=== PATIENT | female | born 1985 | race Caucasian/White ===

== ENCOUNTER 2018-03-09 20:50 | Inpatient (IN) | payer OTHER ==
[~2018-03-09] VITALS: Ht 160 cm; Wt 85.6 kg
[2018-03-09 21:39] LABS: BASOPHILS % (AUTO) 0.2 % (0-1); EOSINOPHILS % (AUTO) 0 % (0-6); HEMATOCRIT 48.2 % (35.0-45.0); HEMOGLOBIN 16.5 g/dl (12.0-16.0); LYMPHOCYTES # (AUTO) 0.7 X10'3 (1.1-4.8); MEAN CORPUSCULAR HGB CONC 34.3 % (33.0-36.5); MEAN CORPUSCULAR VOLUME 90.3 FL (78-98); MEAN PLATELET VOLUME 8.8 FL (7.4-10.4); MONOCYTES # (AUTO) 0.7 X10'3 (0-0.9); MONOCYTES % (AUTO) 4.1 % (2-12); NEUTROPHILS % (AUTO) 91.7 % (42-75); PLATELET COUNT 251 X10'3 (140-440); RED BLOOD COUNT 5.34 X10'6 (4.20-5.60); RED CELL DISTRIBUTION WIDTH 13.8 % (11.5-14.5); WHITE BLOOD COUNT 17.5 X10'3 (4.5-11.0)
[2018-03-09 21:52] LABS: URINE HCG NEGATIVE (NEG)
[2018-03-09 21:53] LABS: ALANINE AMINOTRANSFERASE 508 U/L (12-78); ALKALINE PHOSPHATASE 165 IU/L (46-116); ANION GAP 16 (8-16); ASPARTATE AMINO TRANSFERASE 201 U/L (10-37); BILIRUBIN,TOTAL 4.3 MG/DL (0.1-1.0); BLOOD UREA NITROGEN 7 MG/DL (7-18); BUN/CREATININE RATIO 6.9 (6.6-38.0); CALCIUM 9.8 MG/DL (8.5-10.1); CHLORIDE 101 MMOL/L (99-107); CREATININE 1.01 MG/DL (0.40-0.90); GLUCOSE 122 MG/DL (70-104); POTASSIUM 3.7 MMOL/L (3.5-5.1); SODIUM 138 MMOL/L (135-145); TOTAL CARBON DIOXIDE 21.5 MMOL/L (24-32); eGFR 64 ML/MIN
[2018-03-09 22:02] LABS: CLARITY,URINE CLEAR (Clear); GLUCOSE, URINE NEGATIVE (Neg); KETONES,URINE >=80 mg/dl (Neg); LEUKOCYTE ESTERASE ,URINE NEGATIVE (Neg); NITRITES, URINE NEGATIVE (Neg); OCCULT BLOOD,URINE TRACE-INTACT (Neg); PROTEIN,URINE NEGATIVE (Neg)
[2018-03-09 22:04] LABS: COLOR,URINE AMBER (Yellow); UA COLLECTION TYPE CLN CATCH MIDSTREAM
[2018-03-09 22:07] LABS: BACTERIA,URINE 3+ /HPF (Neg); SQUAMOUS EPITHELIAL CELL,UR MODERATE /LPF (FEW)
[2018-03-09] MEDS ORDERED: sucralfate 1gm/10ml UD suspension PO SCH (22:10)
[2018-03-09] MEDS ORDERED: famotidine/PF 10 mg/ml inj IV ONE (22:10)
[2018-03-09] MEDS ORDERED: LIDOcaine Viscous 15ml cup MM PRN (22:10)
[2018-03-09] MEDS ORDERED: sucralfate 1gm/10ml UD suspension PO ONE (22:10)
[2018-03-09] MEDS ORDERED: pantoprazole 40 MG vial IV ONE (22:10)
[2018-03-09] MEDS ORDERED: mag hydrox/Alum hydrox/simeth 30ml oral suspension PO ONE (22:10)
[2018-03-09] MEDS ORDERED: LIDOcaine Viscous 15ml cup MM ONE (22:10)
[2018-03-09 22:29] LABS: LIPASE 3107 U/L (73-393)
[2018-03-10] VITALS (19 sets, daily range): BP systolic 106–133; BP diastolic 61–76
[2018-03-10] MEDS ORDERED: normal saline 1000ml 1,000 ML IV ONE (00:04)
[2018-03-10] MEDS ORDERED: normal saline 1000ML IV soln IVB ONE (00:05)
[2018-03-10] MEDS ORDERED: morphine 4 MG/ML inj SYRINge IV ONE ×2 (00:35→02:10)
[2018-03-10] MEDS ORDERED: ondansetron/PF 4mg/2ml inj IV ONE (00:35)
[2018-03-10] MEDS ORDERED: mag hydrox/Alum hydrox/simeth 30ml oral suspension PO PRN (01:05)
[2018-03-10] MEDS ORDERED: morphine 4 MG/ML inj SYRINge IV PRN ×2 (01:05)
[2018-03-10] MEDS ORDERED: acetaminophen 325mg tablet PO PRN ×2 (01:05)
[2018-03-10] MEDS ORDERED: magnesium hydroxide 30ml (MOM) UD suspension PO PRN (01:05)
[2018-03-10] MEDS: normal saline 1000ml 1,000 ML IV SCH ×3 (01:48→21:02)
[2018-03-10] MEDS: metroNIDAZOLE-Flagyl 500mg/NS 100 ML IV SCH ×3 (01:48→17:56)
[2018-03-10] MEDS ORDERED: MEDR150D9 IM (02:41)
[2018-03-10] MEDS: levoFLOXACIN-Levaquin 500mg/D5 100 ML IV SCH ×2 (03:25→21:00)
[2018-03-10] MEDS ORDERED: ketorolac tromethamine 15mg/ml inj. IV ONE (05:35)
[2018-03-10] MEDS: lactobacillus rhamnosus 10,000 MMU CELLS/CAPSULE PO SCH ×3 (08:00→22:09)
[2018-03-10] MEDS: enoxaparin 40mg/0.4ml syringe SQ SCH (08:00)
[2018-03-10] MEDS ORDERED: ketorolac trometh. 30mg/ml inj. IV PRN (13:00)
[2018-03-10] MEDS ORDERED: normal saline 1000ml 1,000 ML IV SCH ×2 (14:31→17:10)
[2018-03-10] MEDS ORDERED: fentaNYL/PF 50MCG/1 ML 2ML syringe IV PRN (14:35)
[2018-03-10] MEDS ORDERED: iohexol 300 MG/1 ML 50ml polymer IV ONE (14:35)
[2018-03-10] MEDS ORDERED: meperidine/PF 100mg/ml syringe IV PRN (14:35)
[2018-03-10] MEDS ORDERED: simethicone 40mg/0.6ml oral drops 30ml MC ONE (14:35)
[2018-03-10] MEDS ORDERED: glucagon, human recombinant 1mg kit IV PRN (14:35)
[2018-03-10] MEDS ORDERED: LIDOcaine Viscous 15ml cup PO ONE (14:35)
[2018-03-10] MEDS ORDERED: MIDAZolam 5mg/5ml vial IV PRN (14:35)
[2018-03-10 14:52] LABS: BASOPHILS % (AUTO) 0.2 % (0-1); EOSINOPHILS % (AUTO) 0 % (0-6); HEMATOCRIT 41.8 % (35.0-45.0); HEMOGLOBIN 14.9 g/dl (12.0-16.0); LYMPHOCYTES # (AUTO) 1.2 X10'3 (1.1-4.8); LYMPHOCYTES % (AUTO) 11.6 % (21-51); MEAN CORPUSCULAR HEMOGLOBIN 31.7 PG (27.0-31.0); MEAN CORPUSCULAR HGB CONC 35.6 % (33.0-36.5); MEAN CORPUSCULAR VOLUME 89.1 FL (78-98); MEAN PLATELET VOLUME 8.4 FL (7.4-10.4); MONOCYTES # (AUTO) 0.7 X10'3 (0-0.9); MONOCYTES % (AUTO) 6.6 % (2-12); NEUTROPHILS # (AUTO) 8.7 X10'3 (1.8-7.7); NEUTROPHILS % (AUTO) 81.6 % (42-75); PLATELET COUNT 202 X10'3 (140-440); RED BLOOD COUNT 4.69 X10'6 (4.20-5.60); WHITE BLOOD COUNT 10.6 X10'3 (4.5-11.0)
[2018-03-10 15:10] LABS: ALANINE AMINOTRANSFERASE 391 U/L (12-78); ALKALINE PHOSPHATASE 141 IU/L (46-116); ANION GAP 11 (8-16); ASPARTATE AMINO TRANSFERASE 129 U/L (10-37); BILIRUBIN,TOTAL 6.2 MG/DL (0.1-1.0); BLOOD UREA NITROGEN 6 MG/DL (7-18); BUN/CREATININE RATIO 7.2 (6.6-38.0); CALCIUM 8.9 MG/DL (8.5-10.1); CHLORIDE 107 MMOL/L (99-107); CREATININE 0.83 MG/DL (0.40-0.90); GLUCOSE 99 MG/DL (70-104); POTASSIUM 3.7 MMOL/L (3.5-5.1); SODIUM 142 MMOL/L (135-145); TOTAL CARBON DIOXIDE 24.1 MMOL/L (24-32); eGFR 80 ML/MIN
[2018-03-10 15:16] LABS: ALBUMIN/GLOBULIN RATIO 0.8 (1.1-1.5); TOTAL PROTEIN 6.8 G/DL (6.4-8.2)
[2018-03-10 15:19] LABS: LIPASE 8240 U/L (73-393)
[2018-03-10] MEDS ORDERED: meperidine/PF 100mg/ml syringe ONE (15:28)
[2018-03-10] MEDS ORDERED: fentaNYL/PF 50MCG/1 ML 2ML syringe ONE (15:29)
[2018-03-10] MEDS ORDERED: MIDAZolam 5mg/5ml vial ONE (15:29)
[2018-03-10] MEDS ORDERED: glucagon, human recombinant 1mg kit ONE (15:30)
[2018-03-10] MEDS ORDERED: LIDOcaine Viscous 15ml cup ONE (15:30)
[2018-03-10] MEDS ORDERED: diphenhydrAMINE 50 mg/ml inj ONE (15:30)
[2018-03-10] MEDS ORDERED: iohexol 300 MG/1 ML 50ml polymer ONE (15:31)
[2018-03-10] MEDS ORDERED: ondansetron/PF 4mg/2ml inj ONE (16:13)
[2018-03-10] MEDS ORDERED: diatr meglu/diatrizoate 30ml oral sol.-(3 dose) bottle PO SCH (21:00)
[2018-03-10] MEDS ORDERED: temazepam 15mg capsule PO PRN (21:00)
[2018-03-10] MEDS: ketorolac tromethamine 15mg/ml inj. IV PRN (21:50)
[2018-03-11] VITALS (23 sets, daily range): BP systolic 110–142; BP diastolic 65–90
[2018-03-11] MEDS: metroNIDAZOLE-Flagyl 500mg/NS 100 ML IV SCH ×4 (00:56→23:26)
[2018-03-11] MEDS: normal saline 1000ml 1,000 ML IV SCH ×3 (03:14→20:34)
[2018-03-11] MEDS: ketorolac tromethamine 15mg/ml inj. IV PRN ×2 (04:55→14:40)
[2018-03-11 05:40] LABS: BASOPHILS % (AUTO) 0.2 % (0-1); EOSINOPHILS % (AUTO) 0 % (0-6); HEMATOCRIT 38.6 % (35.0-45.0); HEMOGLOBIN 13.4 g/dl (12.0-16.0); LYMPHOCYTES # (AUTO) 1.6 X10'3 (1.1-4.8); LYMPHOCYTES % (AUTO) 19.3 % (21-51); MEAN CORPUSCULAR HEMOGLOBIN 31.5 PG (27.0-31.0); MEAN CORPUSCULAR HGB CONC 34.8 % (33.0-36.5); MEAN CORPUSCULAR VOLUME 90.7 FL (78-98); MONOCYTES # (AUTO) 0.6 X10'3 (0-0.9); MONOCYTES % (AUTO) 6.5 % (2-12); NEUTROPHILS # (AUTO) 6.3 X10'3 (1.8-7.7); PLATELET COUNT 179 X10'3 (140-440); RED BLOOD COUNT 4.25 X10'6 (4.20-5.60); RED CELL DISTRIBUTION WIDTH 13.9 % (11.5-14.5); WHITE BLOOD COUNT 8.5 X10'3 (4.5-11.0)
[2018-03-11 05:54] LABS: PROTHROMBIN TIME 10.5 SECONDS (9.0-12.0)
[2018-03-11] MEDS ORDERED: famotidine 20mg tablet PO ONE (06:00)
[2018-03-11] MEDS ORDERED: ringers solution, lacted 1,000 ML IV ONE (06:00)
[2018-03-11 06:05] LABS: ALANINE AMINOTRANSFERASE 293 U/L (12-78); ALBUMIN 2.5 G/DL (3.4-5.0); ALKALINE PHOSPHATASE 124 IU/L (46-116); ANION GAP 10 (8-16); ASPARTATE AMINO TRANSFERASE 94 U/L (10-37); BILIRUBIN,TOTAL 4.7 MG/DL (0.1-1.0); BLOOD UREA NITROGEN 4 MG/DL (7-18); BUN/CREATININE RATIO 4.9 (6.6-38.0); CALCIUM 8.2 MG/DL (8.5-10.1); CHLORIDE 107 MMOL/L (99-107); CREATININE 0.81 MG/DL (0.40-0.90); GLUCOSE 96 MG/DL (70-104); POTASSIUM 3.7 MMOL/L (3.5-5.1); SODIUM 139 MMOL/L (135-145); TOTAL CARBON DIOXIDE 22.5 MMOL/L (24-32); eGFR 82 ML/MIN
[2018-03-11 06:08] LABS: ALBUMIN/GLOBULIN RATIO 0.7 (1.1-1.5); TOTAL PROTEIN 6.1 G/DL (6.4-8.2)
[2018-03-11] MEDS: lactobacillus rhamnosus 10,000 MMU CELLS/CAPSULE PO SCH ×2 (07:27→19:10)
[2018-03-11] MEDS: enoxaparin 40mg/0.4ml syringe SQ SCH (07:27)
[2018-03-11] MEDS ORDERED: BUPIVAcaine/PF 7.5mg/ml (0.75%) 10ml vial ONE (07:43)
[2018-03-11] MEDS ORDERED: ringers solution, lacted 1,000 ML IV SCH (07:54)
[2018-03-11] MEDS ORDERED: hydrALAZINE 20mg/ml inj. IV PRN (07:55)
[2018-03-11] MEDS ORDERED: labetalol 20mg/4ml (5mg/ml) syringe IV PRN (07:55)
[2018-03-11] MEDS ORDERED: ondansetron/PF 4mg/2ml inj IV PRN (07:55)
[2018-03-11] MEDS ORDERED: fentaNYL/PF 50MCG/1 ML 2ML syringe IV PRN (07:55)
[2018-03-11] MEDS ORDERED: morphine 4 MG/ML inj SYRINge IV PRN ×2 (07:55)
[2018-03-11 09:14] LABS: LIPASE 2136 U/L (73-393)
[2018-03-11] MEDS ORDERED: fentaNYL/PF 50MCG/1 ML 2ML syringe ONE (11:32)
[2018-03-11] MEDS ORDERED: propofol inj 20 ML IV ONE (11:33)
[2018-03-11] MEDS ORDERED: dexamethasone sod phosphate 4mg/ml inj. ONE (11:33)
[2018-03-11] MEDS ORDERED: glycopyrrolate 0.2mg/ml inj ONE (11:33)
[2018-03-11] MEDS ORDERED: LIDOcaine 2% (20mg/ml) 5ml vial ONE (11:33)
[2018-03-11] MEDS ORDERED: rocuronium 10mg/ml inj IV ONE (11:33)
[2018-03-11] MEDS ORDERED: neostigmine methylsulfate 1 MG/ML 10ml vial ONE (11:40)
[2018-03-11] MEDS ORDERED: sevoflurane 250ml liquid IH ONE (11:40)
[2018-03-11] MEDS: fentaNYL/PF 50MCG/1 ML 2ML syringe IV PRN ×2 (13:27→13:53)
[2018-03-11] MEDS: ondansetron/PF 4mg/2ml inj IV PRN (19:10)
[2018-03-11] MEDS: HYDROcodone/acetaminophen 5mg/325mg tablet PO PRN ×2 (19:10→23:23)
[2018-03-11] MEDS: levoFLOXACIN-Levaquin 500mg/D5 100 ML IV SCH (20:34)
[2018-03-12] VITALS: BP 115/65
[2018-03-12] MEDS: ketorolac tromethamine 15mg/ml inj. IV PRN ×2 (01:52→09:36)
[2018-03-12] MEDS: ondansetron/PF 4mg/2ml inj IV PRN ×2 (01:53→11:16)
[2018-03-12 03:00] VITALS: BP 138/84
[2018-03-12] MEDS: HYDROcodone/acetaminophen 10/325mg tab PO PRN ×2 (03:34→08:02)
[2018-03-12 04:20] VITALS: BP 120/78
[2018-03-12 05:07] LABS: BASOPHILS # (AUTO) 0.1 X10'3 (0-0.2); BASOPHILS % (AUTO) 0.8 % (0-1); EOSINOPHILS % (AUTO) 0 % (0-6); HEMATOCRIT 39.9 % (35.0-45.0); HEMOGLOBIN 13.8 g/dl (12.0-16.0); LYMPHOCYTES # (AUTO) 1.1 X10'3 (1.1-4.8); LYMPHOCYTES % (AUTO) 9.8 % (21-51); MEAN CORPUSCULAR HEMOGLOBIN 31.5 PG (27.0-31.0); MEAN CORPUSCULAR HGB CONC 34.7 % (33.0-36.5); MEAN CORPUSCULAR VOLUME 90.8 FL (78-98); MEAN PLATELET VOLUME 9.2 FL (7.4-10.4); MONOCYTES # (AUTO) 0.5 X10'3 (0-0.9); MONOCYTES % (AUTO) 4.8 % (2-12); NEUTROPHILS # (AUTO) 9.3 X10'3 (1.8-7.7); NEUTROPHILS % (AUTO) 84.6 % (42-75); PLATELET COUNT 181 X10'3 (140-440); RED CELL DISTRIBUTION WIDTH 13.8 % (11.5-14.5)
[2018-03-12 05:25] LABS: ALANINE AMINOTRANSFERASE 252 U/L (12-78); ALBUMIN 2.5 G/DL (3.4-5.0); ALBUMIN/GLOBULIN RATIO 0.7 (1.1-1.5); ALKALINE PHOSPHATASE 135 IU/L (46-116); ANION GAP 9 (8-16); ASPARTATE AMINO TRANSFERASE 80 U/L (10-37); BILIRUBIN,TOTAL 1.7 MG/DL (0.1-1.0); BLOOD UREA NITROGEN 7 MG/DL (7-18); BUN/CREATININE RATIO 9.3 (6.6-38.0); CALCIUM 8.6 MG/DL (8.5-10.1); CHLORIDE 105 MMOL/L (99-107); CREATININE 0.75 MG/DL (0.40-0.90); GLUCOSE 157 MG/DL (70-104); LIPASE 207 U/L (73-393); POTASSIUM 3.8 MMOL/L (3.5-5.1); SODIUM 137 MMOL/L (135-145); TOTAL CARBON DIOXIDE 23.3 MMOL/L (24-32); TOTAL PROTEIN 6.2 G/DL (6.4-8.2); eGFR 90 ML/MIN
[2018-03-12 08:00] VITALS: BP 146/78
[2018-03-12] MEDS: lactobacillus rhamnosus 10,000 MMU CELLS/CAPSULE PO SCH (08:02)
[2018-03-12] MEDS: metroNIDAZOLE-Flagyl 500mg/NS 100 ML IV SCH (08:02)
[2018-03-12] MEDS: enoxaparin 40mg/0.4ml syringe SQ SCH (08:05)
[2018-03-12] MEDS: normal saline 1000ml 1,000 ML IV SCH (09:16)
[2018-03-12 11:24] VITALS: BP 147/95
[2018-03-12] MEDS ORDERED: HYDR-569 PO (12:52)
== END 2018-03-12 15:15 | disposition home or self-care (01) | DRG 417 ==
LOC: ER 20:52 → ED HOLD 03-10 01:02 → SUR 3N 03-10 01:25 → CMPBEDREQ 03-10 01:33
PROVIDERS: ADMIT Hospitalist; ATTEND Internal Medicine
PROC: 0FC98ZZ Extirpation of Matter from Common Bile Duct, Via Natural or Artificial Opening Endoscopic (ICD-10-PCS; 2018-03-10)
PROC: BF101ZZ Fluoroscopy of Bile Ducts using Low Osmolar Contrast (ICD-10-PCS; 2018-03-10)
PROC: 0FT44ZZ Resection of Gallbladder, Percutaneous Endoscopic Approach (ICD-10-PCS; principal; 2018-03-11 11:40)
DX: K80.63 Calculus of gallbladder and bile duct with acute cholecystitis with obstruction (principal); K85.10 Biliary acute pancreatitis without necrosis or infection; R74.0 Nonspecific elevation of levels of transaminase and lactic acid dehydrogenase [LDH]; Z88.1 Allergy status to other antibiotic agents; Z88.8 Allergy status to other drugs, medicaments and biological substances; Z88.0 Allergy status to penicillin
CPT/HCPCS: 96361; 96374; 96375; 99285; Z7506; 36415; 74150; 76700; 80053; 81001; 81025; 83690; 85025; 85610; 87070; 87088; 93005; A7000; C9113; G0500; J1100; J1200; J1610; J1650; J1885; J1956; J2001; J2175; J2250; J2270; J2405; J2704; J2710; J3010; J3490; J7030; J7120; Q9967